=== PATIENT | male | born 2000 | race Caucasian/White ===

== ENCOUNTER 2024-09-30 16:26 | Emergency (ER) | payer BC ==
[~2024-09-30] VITALS: Ht 188 cm; Wt 90.1 kg
[2024-09-30 16:30] VITALS: BP 136/69; PULSE 89; RESP 16; TEMP 98; O2SAT 98
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
[2024-09-30] MEDS: TETanus/Pertussis (Acell)/Diphther VAC/PF (Tdap-Adult) 0.5ml syringe IMVAC ONE (17:39)
== END 2024-09-30 17:41 | disposition home or self-care (01) ==
LOC: ER 16:27
DX: T23.202A Burn of second degree of left hand, unspecified site, initial encounter (principal); X08.8XXA Exposure to other specified smoke, fire and flames, initial encounter; Y93.89 Activity, other specified; Y92.89 Other specified places as the place of occurrence of the external cause; Y99.8 Other external cause status
CPT/HCPCS: 16020; 90471; 90715; 99283; A6258; A6449